=== PATIENT | female | born 1985 | race Caucasian/White ===

== ENCOUNTER 2018-01-05 05:39 | Day surgery (SDC) | payer BC ==
[~2018-01-05] VITALS: Ht 167.6 cm; Wt 65.7 kg
[~2018-01-05 05:39] MED LIST: ALLER-EASE180 MG PO; AMBIEN10 MG PO; BUSPAR30 MG PO; LEVONEST1 EACH PO; LEXAPRO10 MG PO; NEXIUM20 MG PO
[2018-01-05 06:54] VITALS: BP 128/72
[2018-01-05 13:20] VITALS: BP 110/65
[2018-01-05 14:09] VITALS: BP 119/72
== END 2018-01-05 14:15 | disposition home or self-care (01) ==
LOC: SDC 05:39
PROC: 0UL78DZ Occlusion of Bilateral Fallopian Tubes with Intraluminal Device, Via Natural or Artificial Opening Endoscopic (ICD-10-PCS; principal; 2018-01-05)
DX: Z30.2 Encounter for sterilization (principal); I95.81 Postprocedural hypotension; I97.89 Other postprocedural complications and disorders of the circulatory system, not elsewhere classified; F45.8 Other somatoform disorders
CPT/HCPCS: 93005; J0131; J0461; J1885; J2250; J2405; J3010